=== PATIENT | female | born 1985 | race Hispanic/Latino ===

== ENCOUNTER 2021-05-19 06:54 | Day surgery (SDC) | payer BC, OTHER ==
[2021-05-19] VITALS (12 sets, daily range): BP systolic 98–118; BP diastolic 55–74
[~2021-05-19] VITALS: Ht 160 cm; Wt 95.7 kg
[2021-05-19] MEDS ORDERED: 0.9%NACL 1000ML 1,000 ML IV ONE (07:48)
== END 2021-05-19 09:40 | disposition home or self-care (01) ==
LOC: ENDO 06:54 → DAH 06:54 → ENDO 09:40
PROVIDERS: ATTEND Surgery
DX: K21.9 Gastro-esophageal reflux disease without esophagitis (principal); K29.50 Unspecified chronic gastritis without bleeding; E66.01 Morbid (severe) obesity due to excess calories; Z98.51 Tubal ligation status; Z68.37 Body mass index [BMI] 37.0-37.9, adult; Z20.822 Contact with and (suspected) exposure to COVID-19
CPT/HCPCS: 43239; 71045; 81025; 87635; 93005; A4215 ×2; A4221; A4222; A4223; A4606; A4620; A4657; A4663; C9803; J7030

== ENCOUNTER 2021-09-04 11:00 | Inpatient (IN) | payer BC ==
[2021-09-03 10:51] LABS: BASOPHILS % (AUTO) 0.4 % (0.0-5.0); EOSINOPHILS % (AUTO) 1.6 % (0.0-8.0); HEMATOCRIT 37.8 % (36-48); LYMPHOCYTES % (AUTO) 30.6 % (21.0-51.0); MEAN CORPUSCULAR HEMOGLOBIN 27.9 pg (27.0-33.0); MEAN CORPUSCULAR HGB CONC 31.7 g/dL (32.0-36.0); MEAN CORPUSCULAR VOLUME 87.9 fL (79-99); MONOCYTES % (AUTO) 6.7 % (3.0-13.0); NEUTROPHILS % (AUTO) 60.6 % (40.0-77.0); PLATELET COUNT (AUTO) 179 K/uL (130-400); RED CELL DISTRIBUTION WIDTH 13.5 % (11.0-15.5); WHITE BLOOD COUNT (AUTO) 6.8 K/uL (4.8-10.8)
[2021-09-03 11:00] LABS: CREATININE 0.7 mg/dL (0.5-1.5); POTASSIUM 3.9 mmol/L (3.5-5.1)
[2021-09-03 11:09] LABS: INR 0.99 (0.85-1.15); PROTHROMBIN TIME 10.8 SEC (9.6-11.6)
[2021-09-03 11:11] LABS: PARTIAL THROMBOPLASTIN TIME 28.8 SEC (26.3-35.5)
[~2021-09-04] VITALS: Ht 160 cm; Wt 57.2 kg
[2021-09-04] MEDS: CEFAZOLIN SODIUM 2 GM VIAL IV SCH (12:00)
[2021-09-05 14:52] VITALS: BP 126/72
[2021-09-05] MEDS ORDERED: MULT200T12 PO (14:55)
[2021-09-05] MEDS ORDERED: CALCIUM PLUS D3 PO (14:55)
[2021-09-08] VITALS (22 sets, daily range): BP systolic 99–126; BP diastolic 52–71
[2021-09-08] MEDS ORDERED: LACTATED RINGERS 1000ML 1,000 ML IV ONE (09:34)
[2021-09-08] MEDS ORDERED: CEFAZOLIN SODIUM 1 GM VIAL ONE (09:34)
[2021-09-08] MEDS ORDERED: SCOPOLAMINE HYDROBROMIDE 1 EACH ADH..PATCH TD ONE (11:39)
[2021-09-08] MEDS ORDERED: FAMOTIDINE 20MG VIAL IV ONE (11:40)
[2021-09-08] MEDS ORDERED: MIDAZOLAM HCL 1 MG/ML 2ML VIAL ONE (11:41)
[2021-09-08] MEDS ORDERED: DEXMEDETOMIDINE HCL 200 MCG/2 ML VIAL IV ONE (11:47)
[2021-09-08] MEDS ORDERED: KETAMINE 50MG/ML SYRINGE 50 MG/ML DISP.SYRIN IV ONE (11:48)
[2021-09-08] MEDS ORDERED: LIDOCAINE PF 100MG/5ML (2%) SYRINGE 5ML ONE (11:51)
[2021-09-08] MEDS ORDERED: PROPOFOL 10 MG/ML 20ML VIAL IV ONE ×2 (11:51→12:31)
[2021-09-08] MEDS ORDERED: ROCURONIUM 10MG/1ML SYR 10 MG/ML ML ONE (11:51)
[2021-09-08] MEDS: CEFAZOLIN SODIUM 2 GM VIAL IV SCH ×2 (12:00→12:10)
[2021-09-08] MEDS ORDERED: GLYCOPYRROLATE 1 MG/5 ML SYRINGE ONE (12:06)
[2021-09-08] MEDS ORDERED: FENTANYL CITRATE PF 50 MCG/1 ML 2ML VIAL ONE (12:30)
[2021-09-08] MEDS ORDERED: EPHEDRINE SULFATE 50 MG/ML AMPULE ONE (12:38)
[2021-09-08] MEDS: BUPIVACAINE/PF 0.5% 30ML VIAL ONE ×2 (12:44→12:52)
[2021-09-08] MEDS ORDERED: KETOROLAC 30MG VIAL (30MG/ML) ONE (12:47)
[2021-09-08] MEDS ORDERED: NEOSTIGMINE 5MG/5ML SYR IV ONE (12:47)
[2021-09-08] MEDS ORDERED: MORPHINE 5 MG/ML VIAL (5MG OR GREATER DOSE) IVP PRN (13:00)
[2021-09-08] MEDS ORDERED: MEPERIDINE-PF 25 MG/ML SYG ONE (13:29)
[2021-09-08] MEDS ORDERED: MORPHINE 4 MG SYG ONE (14:39)
[2021-09-08] MEDS: ONDANSETRON 4MG INJ IVP PRN (14:45)
[2021-09-08] MEDS: LACTATED RINGERS 1000ML 1,000 ML IV SCH ×2 (14:46→22:06)
[2021-09-08] MEDS: CEFAZOLIN SODIUM 1 GM VIAL IVP SCH (18:55)
[2021-09-08] MEDS: MORPHINE 4 MG SYG IV PRN (19:47)
[2021-09-08] MEDS: FAMOTIDINE 20MG VIAL IV SCH (21:46)
[2021-09-08] MEDS: ENOXAPARIN SODIUM 30 MG/0.3 ML SQ SCH (21:47)
[2021-09-09] MEDS: ONDANSETRON 4MG INJ IVP PRN ×2 (01:43→07:51)
[2021-09-09] MEDS: MORPHINE 4 MG SYG IV PRN (01:43)
[2021-09-09] MEDS ORDERED: CEFAZOLIN SODIUM 1 GM VIAL ONE (03:02)
[2021-09-09] MEDS: CEFAZOLIN SODIUM 1 GM VIAL IVP SCH (03:07)
[2021-09-09 03:50] VITALS: BP 106/64
[2021-09-09 05:21] LABS: BASOPHILS % (AUTO) 0.1 % (0.0-5.0); HEMATOCRIT 33.6 % (36-48); LYMPHOCYTES % (AUTO) 8.4 % (21.0-51.0); MEAN CORPUSCULAR HEMOGLOBIN 28.5 pg (27.0-33.0); MEAN CORPUSCULAR HGB CONC 32.7 g/dL (32.0-36.0); MONOCYTES % (AUTO) 6.5 % (3.0-13.0); NEUTROPHILS % (AUTO) 84.5 % (40.0-77.0); PLATELET COUNT (AUTO) 176 K/uL (130-400); RED BLOOD CELL COUNT(AUTO) 3.86 MIL/uL (4.00-5.50); RED CELL DISTRIBUTION WIDTH 13.2 % (11.0-15.5)
[2021-09-09 05:31] LABS: CREATININE 0.7 mg/dL (0.5-1.5); POTASSIUM 4.1 mmol/L (3.5-5.1)
[2021-09-09] MEDS: LACTATED RINGERS 1000ML 1,000 ML IV SCH ×2 (06:21→14:29)
[2021-09-09 07:17] VITALS: BP 118/58
[2021-09-09] MEDS: FAMOTIDINE 20MG VIAL IV SCH (07:51)
[2021-09-09] MEDS: ENOXAPARIN SODIUM 30 MG/0.3 ML SQ SCH (07:51)
[2021-09-09] MEDS: METOCLOPRAMIDE 10 MG/2 ML VIAL IVP SCH ×2 (11:16→17:54)
[2021-09-09 11:19] VITALS: BP 114/60
[2021-09-09 11:55] VITALS: BP 134/74
[2021-09-09] MEDS: CEFAZOLIN SODIUM 2 GM VIAL IV SCH (12:00)
[2021-09-09 15:55] VITALS: BP 129/70
== END 2021-09-09 18:20 | disposition home or self-care (01) | DRG 621 ==
LOC: EDSTATUS 11:00 → DAHIP 09-08 09:06 → WSH 09-08 14:30
PROVIDERS: ADMIT Surgery; ATTEND Surgery
PROC: 0DB64Z3 Excision of Stomach, Percutaneous Endoscopic Approach, Vertical (ICD-10-PCS; principal; 2021-09-08 12:17)
DX: E66.01 Morbid (severe) obesity due to excess calories (principal); Z68.22 Body mass index [BMI] 22.0-22.9, adult; Z20.822 Contact with and (suspected) exposure to COVID-19
CPT/HCPCS: 36415; 71045; 80048; 85025; 85610; 85730; 86850; 86900; 86901; 87635; 93005; G0378; J0690; J1650; J1885; J2001; J2175; J2250; J2270; J2405; J2704; J2710; J2765; J3010; J3490; J7030; J7120